=== PATIENT | male | born 1945 | race Caucasian/White ===

== ENCOUNTER 2021-11-09 11:56 | Outpatient (CLI) | payer MEDICARE, BC | END 2021-11-09 11:57 | disposition home or self-care (01) | LOC: CSHLAB 11:56 | PROVIDERS: ATTEND Internal Medicine Cardiovascular Disease | DX: Z20.822 Contact with and (suspected) exposure to COVID-19 (principal); I50.22 Chronic systolic (congestive) heart failure | CPT/HCPCS: 87811 ==

== ENCOUNTER 2021-11-14 12:38 | Outpatient (CLI) | payer MEDICARE, BC | END 2021-11-14 12:39 | disposition home or self-care (01) | LOC: CSHCP 12:38 | PROVIDERS: ATTEND Internal Medicine Cardiovascular Disease | DX: R06.09 Other forms of dyspnea (principal) | CPT/HCPCS: 94010; 94726; 94729; 94760 ==